=== PATIENT | female | born 1995 | race Caucasian/White ===

== ENCOUNTER 2020-06-07 20:29 | Emergency (ER) | payer OTHER ==
[2020-06-07 20:38] VITALS: BP 119/78; PULSE 98; TEMP 98.4; BMI 28.3
[2020-06-07] MEDS ORDERED: HIV POST EXPOSURE PROPHYLAXIS KIT NR ONE (21:10)
[2020-06-07 21:48] LABS: URINE APPEARANCE CLEAR; URINE BILIRUBIN NEGATIVE (NEGATIVE); URINE COLOR YELLOW; URINE GLUCOSE (UA) NEGATIVE (NEGATIVE); URINE KETONE NEGATIVE (NEGATIVE); URINE LEUK ESTERASE NEGATIVE (NEGATIVE); URINE NITRITE NEGATIVE (NEGATIVE); URINE PROTEIN NEGATIVE (NEGATIVE); URINE UROBILINOGEN 0.2 mg/dL (0.2-1.0)
[2020-06-07] MEDS ORDERED: HIV POST EXPOSURE PROPHYLAXIS KIT PO ONE (21:51)
[2020-06-07 23:10] LABS: BASO % 0.6 % (0-2.0); EOS % 0.2 % (0-4.5); HEMATOCRIT 36.4 % (32.4-45.2); HEMOGLOBIN 11.7 GM/dL (10.7-15.3); MCH 26.3 pg (25.7-33.7); MCHC 32.2 g/dl (32.0-36.0); MEAN CELL VOLUME 81.6 fl (80-96); MEAN PLT VOLUME 12.6 fl (7.5-11.1); MONO % 6.9 % (3.8-10.2); NEUT % 69.3 % (42.8-82.8); RBC 4.47 M/mm3 (3.60-5.2); RDW 13.2 % (11.6-15.6); WHITE BLOOD COUNT 7.1 K/mm3 (4.0-10.0)
[2020-06-07 23:21] LABS: HCG,QUALITATIVE URINE Negative
[2020-06-07 23:37] LABS: CHLORIDE 109 mmol/L (98-107); SODIUM 140 mmol/L (136-145)
[2020-06-07 23:38] LABS: PLATELET COUNT 165 K/MM3 (134-434); PLATELET ESTIMATE DECREASED
[2020-06-07 23:39] LABS: ALBUMIN 3.1 g/dl (3.4-5.0); ANION GAP 6 MMOL/L (8-16); BLOOD UREA NITROGEN 12.1 mg/dL (7-18); CALCIUM 8.2 mg/dL (8.5-10.1); CO2 24 mmol/L (21-32); GLUCOSE,RANDOM 103 mg/dL (74-106)
[2020-06-07 23:43] LABS: BILIRUBIN,TOTAL 0.3 mg/dL (0.2-1); CHOLESTEROL 128 mg/dL (50-200); CREATININE 0.8 mg/dL (0.55-1.3); SGOT/AST 17 U/L (15-37); SGPT/ALT 23 U/L (13-61); TOT PROT 6.6 g/dl (6.4-8.2); TRIGLYCERIDES 47 mg/dL (0-150)
[2020-06-07 23:45] LABS: ALK PHOS 54 U/L (45-117)
[2020-06-08 00:08] LABS: SYPHILIS W/ RPR CONF NON-REACTIVE (NONREACTIVE)
[2020-06-08 00:37] LABS: HIV INTERPRETATION NEGATIVE (NEGATIVE)
== END 2020-06-07 22:00 | disposition home or self-care (01) ==
LOC: JER 20:29
DX: Z20.6 Contact with and (suspected) exposure to human immunodeficiency virus [HIV] (principal)
CPT/HCPCS: 36415; 80053; 81003; 82465; 84478; 84702; 84703; 85025; 86317; 86704; 86706; 86780; 86803; 87086; 87340; 87389; 87491; 87591; 99283-25

== ENCOUNTER 2020-09-15 15:18 | Emergency (ER) | payer OTHER ==
[2020-09-15 15:47] VITALS: BP 110/68; PULSE 67; TEMP 98.6; BMI 27.4
[2020-09-15 18:19] LABS: HIV INTERPRETATION NEGATIVE (NEGATIVE)
== END 2020-09-15 16:46 | disposition home or self-care (01) ==
LOC: JERFT 15:18
DX: Z11.3 Encounter for screening for infections with a predominantly sexual mode of transmission (principal)
CPT/HCPCS: 36415; 84703; 86780; 87389; 87491; 87591; 99283-25

== ENCOUNTER 2021-04-26 16:18 | Emergency (ER) | payer OTHER ==
[2021-04-26 16:26] VITALS: BP 118/75; PULSE 86; TEMP 98; BMI 27.3
[2021-04-26 18:34] LABS: SYPHILIS W/ RPR CONF NON-REACTIVE (NONREACTIVE)
[2021-04-26 19:02] LABS: HIV INTERPRETATION NEGATIVE (NEGATIVE)
== END 2021-04-26 23:57 | disposition left against medical advice (07) ==
LOC: JERFT 16:18
DX: Z77.21 Contact with and (suspected) exposure to potentially hazardous body fluids (principal)
CPT/HCPCS: 36415; 84703; 86780; 87389; 87491; 87591; 99283-25